=== PATIENT | male | born 1955 | race Caucasian/White ===

== ENCOUNTER 2017-01-09 08:59 | Outpatient (CLI) | payer BC ==
[2017-01-09 09:30] LABS: BASOPHILS % 0.4 (0.0-1.5); EOSINOPHILS % 3.9 % (0.0-6.8); MEAN CORPUSCULAR VOLUME 89.1 fl (80.0-100.0); MONOCYTES % 3.8 % (0.0-11.0); NEUTROPHILS # 5.7 # k/uL (1.4-7.7)
== END 2017-01-09 09:00 ==
LOC: LAB 08:59
PROVIDERS: ATTEND Family Medicine
DX: I88.9 Nonspecific lymphadenitis, unspecified (principal)
CPT/HCPCS: 36415; 85025

== ENCOUNTER 2018-05-04 08:15 | Outpatient (CLI) | payer BC, OTHER ==
[2018-05-04 08:58] LABS: eGFR (Non-African) > 60
== END 2018-05-04 09:30 ==
LOC: LAB 08:15
PROVIDERS: ATTEND Nurse Practitioner Family
DX: I25.10 Atherosclerotic heart disease of native coronary artery without angina pectoris (principal); E78.5 Hyperlipidemia, unspecified
CPT/HCPCS: 36415; 80053; 80061

== ENCOUNTER 2018-11-02 08:07 | Outpatient (CLI) | payer OTHER | END 2018-11-02 08:12 | disposition home or self-care (01) | LOC: LAB 08:07 | PROVIDERS: ATTEND Family Medicine | DX: I25.10 Atherosclerotic heart disease of native coronary artery without angina pectoris (principal); E78.5 Hyperlipidemia, unspecified | CPT/HCPCS: 36415; 80061 ==